=== PATIENT | female | born 1950 | race Caucasian/White ===

== ENCOUNTER 2016-12-27 21:30 | Observation (INO) | payer MEDICARE ==
[~2016-12-27] VITALS: Ht 157.5 cm; Wt 58.5 kg
[~2016-12-27 21:30] MED LIST: PRE20 PO; TRAM50TA2 PO; excedrin PO
[2016-12-27 22:48] VITALS: BP 124/76; PULSE 86; RESP 18; O2SAT 97
[2016-12-27] MEDS ORDERED: Excedrin PO (23:06)
[2016-12-27] MEDS ORDERED: LEVO500T16 PO (23:23)
[2016-12-27] MEDS ORDERED: METR500T PO (23:23)
[2016-12-27] MEDS ORDERED: Atropine 1 mg/10 mL (Code) Syringe IVPUSH PRN (23:50)
[2016-12-27] MEDS ORDERED: Senna-Docusate 8.6-50 mg Tablet PO PRN (23:50)
[2016-12-27] MEDS ORDERED: Ondansetron 2 mg/mL 2 mL Inj IVPUSH PRN (23:50)
[2016-12-27] MEDS ORDERED: Polyethylene Glycol (PEG) 17 Gm Powder PO PRN (23:50)
[2016-12-27] MEDS ORDERED: Alum-Mag Hydrox-Simeth 30 mL Suspension PO PRN (23:50)
[2016-12-28] MEDS: Sodium Chloride LOK Flush 10 mL Syringe IVFLUSH SCH ×2 (00:30→07:45)
[2016-12-28] MEDS: 0.9% Sodium Chloride 1,000 ML IV SCH ×3 (00:33→14:21)
[2016-12-28 00:49] VITALS: BP 118/78; PULSE 78; RESP 18; O2SAT 96
--- NOTE | 2016-12-28 00:58 | PCM.HPMED ---
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 Patient presented to the [facility] ED via private vehicle complaining of acute onset shortness of breath and chest pressure described as "I have now been sitting on my chest" rated 7-8 out of 10 and unremitting onset 4 PM on 12/27/2016. Of note patient is 5 weeks status post immunotherapy. Currently patient describes no pain during the interview. She states the Dilaudid helped a great deal. She reports that she has never experienced this sensation prior to today. Patient reports that the chest pressure (points to sternum) began while at rest without strenuous activity, and was associated with shortness of breath. Patient is currently a smoker with [id number] history currently smoking 3 cigarettes per day. In the [facility] ED patient received the following: Patient had a negative troponin at 0.05, received Aspirin 325 mg once, nitroglycerin paste 1 inch, IV normal saline 1000 mL per hour over 30 minutes, Dilaudid 0.5 mg once, Lovenox sub-cutaneous 60 mg once, Protonix 40 mg IV once His vital signs in the ED were blood pressure 110/80, heart rate 87, oxygen saturation 97% on room air, pain scale 5 out of 10 prior to nitroglycerin. After nitroglycerin patient's pain was rated as 3 out of 10 and after Dilaudid patient's pain was rated as 0 out of 10. Hemogram: Within normal limits Chemistry panel: Alkaline phosphatase 125, albumin 2.9, otherwise within normal limits Troponin I less than 0.05 D-dimer elevated at 1.[address] angiogram thorax [facility] 12/27/2016 Impression: No evidence of pulmonary embolism, increasing mediastinal adenopathy consistent with neoplastic progression, findings discussed with Dr. Mujica X-ray chest 2 view, 12/27/2016 Impression: mild bibasilar parenchymal scarring, there is a persistent 4.0; right paratracheal enlarged lymph node. Otherwise negative chest x-ray EKG done at [facility] 12/27/2015 showed normal sinus rhythm, left axis deviation, pulmonary disease pattern, inferior posterior infarct age undetermined, abnormal ECG. Upon review of the EKG by this physician appears that there is T-wave inversion in lead V1 and V2 as well as aVR. There appears to be peaked T-wave in V2. No acute ST or T-wave changes. No changes versus previous EKG on 12/06/2015. Review of Systems: A comprehensive review of systems was conducted and was negative except as mentioned in history of present illness. Allergies Coded Allergies: nivolumab (Verified Adverse Reaction, Severe, 12/27/16) Possibly the cause of increased weakness, uncoordination, tingling and pain. prednisone (Verified Adverse Reaction, Severe, 12/27/16) Possible taper off prednisone caused increased weakness, uncoordination, tingling and pain. Uncoded Allergies: narcotics (Adverse Reaction, Unknown, Constipation, 12/27/16) Home Medications Levothyroxine 500 mg PO daily 2 days remaining Metronidazole 500 mg PO every 8 hours 2 days remaining Excedrin 1000 mg twice a day PMH Small cell lung cancer status post lobectomy August 2014 Metastatic lung cancer to the leg status post condylocephalic nailing of the right femur, status post radiation Diverticulosis/diverticulitis, diagnosed 12/23/2016 currently on antibiotics UTI diagnosed 12/23/2016 currently on antibiotics Degenerative disc disease Scoliosis Surgical History Lung lobectomy August 2014 Prognosis: Nailing of the right femur December 2014 secondary to leg metastases Family History Father history of colon cancer, prostate cancer, Alzheimer's, hypertension, at age 94 Social History Hx Alcohol Use: No Hx Substance Use: No Hx Tobacco Use: Yes (3 cigarettes per day, at most one half pack per day 40 years) Smoking Status: Current Every Day Smoker Living Arrangement: with Family (this with Ramy [phone]) Exam Vital Signs Vital Sign - Last Date Time Temp Pulse Resp B/P Pulse Ox O2 Delivery O2 Flow Rate FiO2 2/25/17 22:48 36.8 86 18 124/76 97 Room Air Exam General: alert, oriented 3 no acute distress, speaking in full sentences, pleasant, cheerful, sitting at the side of her bed, conversing HEENT: NC/AT, eyes, PERRLA, EOMI, neck, soft supple, no adenopathy, no JVD, no masses, no thyromegaly, throat mucous membranes pink and moist, no erythema, no exudates, no tonsillar swelling. Lungs: CTAB all dunne, no wheezes, no rhonchi, no crackles, no adventitious lung sounds, no use of accessory muscles of respiration, good air movement, good respiratory effort. Heart: Regular rate and rhythm, no murmur, S1-S2 present, no rub, no click, no distant heart sounds, Abdomen: Soft, nontender, nondistended, bowel sounds active, no rebound, no guarding, Genitourinary: No CVA tenderness, no suprapubic tenderness, no Chapman catheter, Extremities: pulses equal and symmetric upper/lower extremity including radial and dorsalis pedis, no edema Neurologic: Grossly neurologically intact, taking in full sentences, no focal neurological signs. Skin: Slightly yellow colored skin, no icterus, patient is a smoker, skin is warm and dry Psychiatric: Mood is cheerful and mood and affect are congruent and appropriate. Lab and Diagnostics X-Rays, CTs and MRIs CT angiogram thorax [facility] 12/27/2016 Indications chest pain, elevated d-dimer 1.51 Findings mild bilateral upper lower lung parenchymal scarring, lungs are otherwise clear. There is a increase in size of 3.4 cm Jennifer paratracheal lymph node previously was 2.8 cm and a 2.5 cm right anterior mediastinal lymph node now measuring 2.5 cm previously 2.2 cm No evidence of pulmonary embolism Impression: No evidence of pulmonary embolism, increasing mediastinal adenopathy consistent with neoplastic progression, findings discussed with Dr. Mujica X-ray chest 2 view, 12/27/2016 Findings: status post right upper lipectomy was mild parenchymal scarring at the lung bases, lungs otherwise clear. There is a 4.0 cm right paratracheal enlarged lymph node mediastinum is otherwise normal. Heart is normal in size, thorax is unchanged. Reason chest pain history of lung carcinoma and adenopathy Impression: mild bibasilar parenchymal scarring, there is a persistent 4.0; right paratracheal enlarged lymph node. Otherwise negative chest x-ray 12-lead ECG EKG done at [facility] 12/27/2015 showed normal sinus rhythm, left axis deviation, pulmonary disease pattern, inferior posterior infarct age undetermined, abnormal ECG. Upon review of the EKG by this physician appears that there is T-wave inversion in lead V1 and V2 as well as aVR. There appears to be peaked T-wave in V2. No acute ST or T-wave changes. No changes versus previous EKG on 12/06/2015. Assessment & Plan This is a pleasant 66-year-old female with past neural L history of metastatic small cell lung cancer status post right lobectomy, with recent diagnosis of diverticulitis and UTI currently on oral antibiotic medication, who presented to [facility] ED complaining of acute onset chest pressure and shortness of breath while at rest. Pain resolved with nitroglycerin and Dilaudid. Initial workup including EKG and troponins were negative for STEMI/ and STEMI patient was answered to [facility] for further workup and observation. # Acute chest pressure and shortness of breath while at rest, present on admission, active - Patient admitted for observation for further workup into rule out Acute Coronary Syndrome/[place], - EKG: normal sinus rhythm, left axis deviation, pulmonary disease pattern, inferior posterior infarct age undetermined, abnormal ECG. Upon review of the EKG by this physician appears that there is T-wave inversion in lead V1 and V2 as well as aVR. There appears to be peaked T-wave in V2. No acute ST or T- wave changes. No changes versus previous EKG on 12/06/2015. - Troponin I was less than 0.05 at [facility] - At [facility] had elevated d-dimer 1.51 - CT angiogram thorax negative for pulmonary embolism - Chest x-ray showed no acute cardio pulmonary changes, however persistent 4.0 cm right paratracheal enlarged lymph node - Patient received enoxaparin 60 mg subcutaneous once at [facility], will continue enoxaparin every 12 hours while in-house. - Cardiac echo ordered and pending - Stress testing in the a.m. to rule out ischemia - O2 Sats keep > 94% - IV fluids will saline only as needed, - We will hold off on starting Metoprolol given blood pressure 124 systolic - We will start Atorvastatin - Morphine for pain control - Nitro SL, Nitro Pomeroy, Nitro Paste (PRN) - Continue daily Aspirin 325mg - We will hold off on starting Plavix - Patient received enoxaparin 60 mg subcutaneous once at [facility], will continue enoxaparin every 12 hours while in-house. - Continuous Cardiac Monitoring/BP monitoring - Consider Cardio Consult (in AM) - A.M Labs ordered and pending (Lipid Panel, CBC, CMP) - Heart Healthy Diet # Diverticulosis with acute diverticulitis, present on admission, active - Patient currently in no abdominal pain, denying nausea vomiting fevers. - Exam significant for no abdominal tenderness, normal bowel sounds, no rebound or guarding. - As seen on CT abdomen and pelvis dated 12/23/2016 at [facility] showed acute diverticulitis, patient was discharged on oral medication levothyroxine 500 mg daily, and metronidazole 500 mg every 8 hours. - Continue medication levothyroxine 500 mg by mouth daily for remaining 2 days. Patient to take own home medication - Continue medication metronidazole 500 mg every 8 hours by mouth for remaining 2 days. Patient to take own home medication Disposition: Admitted to in patient service with expected length of stay greater than 2 days, secondary to severity of presenting symptoms, treatment plan, complexity of clinical work up, and risk of adverse events. CODE STATUS: Full code PCP: Dr. De Paz, Oncology: Dr. Crisostomo DVT PE prophylaxis: She currently on subcutaneous enoxaparin every 12 hours. Patient received first dose 60 mg of enoxaparin subcutaneous at [facility]. Contact: Ramy, , Pain Evaluation: Adequate Pain Control Resuscitation Status: CPR: Attempt Resuscitation Attending Statement The patient was seen and examined together with Dr. Edwards on 12/27 and I agree with the history, exam and plan as outlined in the note above. Keenan Edwards DO Dec 28, 2016 00:58 Harry Givens MD Dec 28, 2016 01:27
--- NOTE | 2016-12-28 01:11 | NUR ---
ADMIT NOTE Pt arrived to [facility] 3001 approx 2245 via ambulance from [facility]. Pt alert & oriented, able to ambulate from stretcher to bed. Pt denies any pain or chest discomfort at this time. Pt placed on remote telemetry. VS obtained. Pt on RA. Pt arrived w/ saline lock, patent, IVF administered. Continue to monitor. Call light in reach. Intentional rounding.
--- NOTE | 2016-12-28 04:08 | NUR ---
Cardiac Stress Test Prep Pts last meal/food was 12/27/16 @ 1400. Last caffeine 12/27/16 "was around 7am, I had half cup of coffee, and took 2 excedrin about 4pm." NPO since MN. 2nd troponin ordered to be drawn w/ 12/28/16 am labs. Nitro paste removed 12/28/16 @ 5411.
[2016-12-28 04:52] VITALS: BP 124/79; PULSE 82; RESP 18; O2SAT 96
[2016-12-28 07:05] VITALS: PULSE 85
[2016-12-28 07:05] LABS: BASOPHILS % (AUTO) 0.9 % (0-3); EOSINOPHILS % (AUTO) 6.6 % (0-5); MONOCYTES % (AUTO) 12.9 % (4-12); Mean Corpuscular Hemoglobin 27.2 pg (27.0-35.0); Mean Corpuscular Volume 85.4 fL (81-100); NEUTROPHILS % (AUTO) 55.3 % (40-74); Platelet Count 341 bil/L (150-400)
[2016-12-28 07:55] LABS: TROPONIN T < 0.010 ug/L (0.0-0.011)
[2016-12-28 08:06] LABS: INR 1.09 ratio
[2016-12-28] MEDS ORDERED: levoFLOXacin 500 mg Tablet PO SCH (08:30)
[2016-12-28 09:06] VITALS: PULSE 75
--- NOTE | 2016-12-28 10:33 | NUR ---
pt off floor for stress test
[2016-12-28 11:30] VITALS: BP 124/76; PULSE 101; RESP 18; O2SAT 96
--- NOTE | 2016-12-28 12:11 | NUR ---
SYLVESTER explained and signed. Copy given to pt.
--- NOTE | 2016-12-28 12:29 | DRSVH ---
[facility] [address] [place] [address] Echocardiogram Report Name: OSVALDO MOSQUEDA HStudy Date: Height: 62 in Hospital Exam Location: [facility] Weight: 129 lb Gender: Female BSA: 1.6 m2 : 1950 Age: 66 yrs BP: 124/79 mmHg Reason For Study: Chest pain Ordering Physician: [facility] Performed By: Rl Miles Referring Physician: NATHAN CARRANZA Interpretation Summary Left ventricular systolic function is normal without focal wall motion abnormalities with the ejection fraction estimated to be 60-65%. There is borderline concentric left ventricular hypertrophy with assessment of diastolic parameters suggesting a relaxation abnormality of the left ventricle, consistent with normal filling pressures. The right ventricle is normal in size and function. The right ventricular systolic pressure is estimated at 29 mmHg assuming a right atrial pressure of 3 mm Hg. The atria are not well visualized but grossly appear normal in size. There is no significant valvular heart disease. Procedure: A two-dimensional transthoracic echocardiogram with color flow and Doppler was performed. The study quality was technically difficult. There is no prior echocardiogram noted for this patient. The patient was in normal sinus rhythm during the exam. Left Ventricle: The left ventricle is normal in size. There is borderline concentric left ventricular hypertrophy. Left ventricular systolic function is normal without focal wall motion abnormalities. The ejection fraction is estimated to be 60-65%. Assessment of diastolic parameters indicates a relaxation abnormality of the left ventricle, consistent with normal filling pressures. Right Ventricle: The right ventricle is normal in size and function. Atria: The left atrium is not well visualized. The left atrium grossly appears normal in size. The right atrium grossly appears normal in size. The interatrial septum is intact with no evidence for an atrial septal defect. Mitral Valve: The mitral valve is grossly normal. There is no mitral regurgitation noted. Aortic Valve: The aortic valve is not well visualized. The aortic valve is grossly normal. The aortic valve opens well. There is no aortic valve stenosis. No aortic regurgitation is present. Tricuspid Valve: The tricuspid valve is normal. There is a trace or physiologic amount of tricuspid regurgitation. The right ventricular systolic pressure is estimated at 29 mmHg assuming a right atrial pressure of 3 mm Hg. Pulmonic Valve: The pulmonic valve is not well visualized. There is no significant valvular heart disease. Great Vessels: The aortic root is normal size. The ascending aorta could not be visualized. The pulmonary is not well visualized. The IVC is of normal diameter and collapses greater than 50% with a sniff. This suggests a low right atrial pressure of 3 mm Hg. Pericardium/ Pleura There is no pericardial effusion. There is no pleural effusion. MMode/2D Measurements & Calculations LVIDd: 4.3 cm LA A2 area LVOT diam: 2.0 cm LV quinteros. diameter/BSA LVIDs: 2.8 cm AoV Opening (cm/m^2): 2.7 FS: 34.1 % IVSd: 0.98 cm LA length Ao root diam LVPWd: 0.96 cm (vol): 5.5 cm IVC diam Ao Arch Diam (Prox : 2.0 cm Trans): 2.2 cm LV sys. diameter/BSA (cm/m^2): 1.8 Doppler Measurements & Calculations Ao V2 max MV E max ga MV E/A: 0.86 TR max ga : 135.0 cm/sec : 58.1 cm/sec Med Peak E' Ga : 256.5 cm/sec Ao max PG MV A max ga TR max P.3 mmHg : 7.3 mmHg : 67.8 cm/sec E/E' med: 12.6 Ao mean PG Lat Peak E' Ga LVOT Max Ga E/E' lat: 8.0 : 95.7 cm/sec E/e' average KARMEN(I,D): 2.5 cm Pulm A Revs Dur sev ratio MV dec time Ao V2 mean LV V1 max PG KARMEN indexed to BSA : 0.21 sec : 89.8 cm/sec (cm^2/m^2): 1.6 Ao V2 VTI LV V1 VTI: 20.0 cm KARMEN(V,D): 2.2 cm2 Reading Physician:12:28 PM
--- NOTE | 2016-12-28 12:40 | NUR ---
Social Work-initial assessment: Data:See initial assessment. Pt is a 66 y/o female who was admitted on 12/27/16 for chest pain per H&P. Pt's insurance is [facility] and PCP is Baldo Farah MD. EMR Reviewed. SW met with pt at bedside to discuss discharge planning, SW role explained. Pt is alert and oriented x3. Pt resides at home with her in [place] where she remains independent with ADls. Pt does not use any DME and drives. Pt has no HH or SNF history. Pt has no [facility]ci care insurance or VA benefits. SW discussed DPOA/ advanced directive, pt declining resources. Per RN notes, pt has been up independent in her room. Pt feels like she has enough care at home. PT evaluation is pending. Pt's to provide transport home. SW provided phone number and plan on white board in room. SW will continue to follow. Assessment:Pt who is independent at baseline. Plan:Pt to discharge home when medically stable via POV. PT evaluation is pending.SW will continue to follow. NIKKI Huynh Addendum: 12/28/16 at 1245 by PAMELA POWELL Amended: Links added.
[2016-12-28 14:53] VITALS: BP 126/78; PULSE 89; RESP 18; O2SAT 96
--- NOTE | 2016-12-28 15:33 | NUR ---
eyes not focusing pt states that last time she was given Dilaudid IV she was able to focus her vision and didn't have any pain. After 1mg oral she didn't get any relief and couldn't focus eyes. paged doc to advise.
--- NOTE | 2016-12-28 15:48 | DRSVH ---
PROCEDURE PERFORMED: PHARMACOLOGIC VASODILATOR STRESS ONLY MYOCARDIAL PERFUSION IMAGING WITH GATING TO ASSESS EJECTION FRACTION AND REGIONAL WALL MOTION. RADIOPHARMACEUTICAL: 25.2 mCi of technetium-99 tetrofosmin INDICATIONS: The patient is a 66-year-old female with a remote history of partial pneumonectomy for lung cancer with known metastases, admitted with acute dyspnea and chest discomfort with normal tropo nins and ECG. COMPARISON: None. PHARMACOLOGIC VASODILATOR STRESS: 0.4 mg of Lexiscan was infused per protocol. With this, she had a normal hemodynamic response and developed dyspnea followed by mid chest pressure and nausea. Oxygen saturation stayed normal at 96%. Her resting ECG showed low voltage QRS but is otherwise normal and there are no ischemic changes with stress. There were no arrhythmias. She was given 125 mg of melton ophylline with improvement of her chest discomfort down to a level that she said was a chronic, persi stent level. There were no arrhythmias. FINDINGS: 1. Raw Data: There is fairly good myocardial tracer uptake without significant breast shadows or ob vious increased long uptake. 2. Quantitative Gated SPECT: Post-stress ejection fraction is estimated at 91%, likely overestimate d due to the patient's small left ventricular volumes with an end diastolic volume of only 30 mL. Th ere are no regional wall motion abnormalities identified. 3. Myocardial Perfusion Imaging: Post-stress supine images show a normal perfusion pattern without any significant perfusion defects, supported by normal perfusion imaging in the prone position. On t he basis of these images, it was felt that resting images were not needed. IMPRESSION: 1. Normal myocardial perfusion study. 2. No evidence for myocardial ischemia or previous myocardial infarction. 3. High-normal left ventricular systolic function with small left ventricular volumes. 4. Atypical chest discomfort with vasodilator pharmacologic stress but no ECG evidence of ischemia. Dictated by: Jama Garza M.D. on 12/28/2016 at 12:55 Transcribed by: JEAN PAUL on 12/28/2016 at 18:47 Approved by: Jama Garza M.D. on 12/29/2016 at 10:43
--- NOTE | 2016-12-28 15:49 | PCM.PNMED ---
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 ED complaining of acute onset chest pressure and shortness of breath while at rest and nitial workup was negative for STEMI/NSTEMI therefore patient was transferred to [facility] for further workup and observation. Due to #2. Overnight: There were no acute events. Telemetry overnight was sinus rhythm, heart rate 80 to 100, occasional PVC's. The patient is resting in bed comfortably and in no acute distress while having her echocardiogram performed. She denies headache, vision changes, shortness of breath, chest pain, abdominal pain, nausea, vomiting, fever, chills, dysuria , diarrhea or constipation. She does endorse myalgia and eye socket pain which is chronic. She reports she is voiding and eliminating without difficulty. She is up ambulating with assistance and endorses weakness and unsteadiness with her gait. . Exam Vital Signs Vital Sign - Last Date Time Temp Pulse Resp B/P Pulse Ox O2 Delivery O2 Flow Rate FiO2 12/28/16 11:30 36.6 101 18 124/76 96 Room Air Intake and Output 12/27/16 12/27/16 12/28/16 Cumulative From/Thru 15:00 23:00 07:00 12/27/16 22:49 - 12/28/16 06:18 Intake Total 608 ml 608 ml Output Total 850 ml 850 ml Balance -242 ml -242 ml Intake Oral 200 ml 200 ml IV Total 408 ml 408 ml Output Urine Total 850 ml 850 ml Exam General: Middle-aged female lying in bed and in no acute distress, well- developed, well-nourished, appropriately interactive HEENT: Normocephalic, atraumatic. External ears without defect. Pupils equal, round, and reactive to light. Anicteric sclerae, moist conjunctivae, and no lid lag. Oropharynx free of erythema and cobble stoning with moist mucosa. Neck: Supple with full range of motion. No jugular venous distension. No bruits. No lymphadenopathy or thyromegaly. Cardiovascular: Regular rate and rhythm with no murmurs, rubs, or gallops appreciated Pulmonary: Clear to auscultation bilaterally with no crackles, wheezes, or rhonchi. Normal respiratory effort with no use of accessory muscles. Abdomen: Soft, nontender, nondistended, bowel sounds present. No hepatosplenomegaly or masses appreciated. Extremities: No clubbing, cyanosis, or edema. Skin: Normal temperature, turgor, and texture; no rash, ulcers, or subcutaneous nodules appreciated. Neurological: Cranial nerves grossly intact. Normal muscle strength, tone, and bulk. Reflexes, coordination, and sensory function within normal limits. No known gait impairment. Psychiatric: Normal mood and affect. Alert and oriented to person, place, and time. . IVs and Medications Medications Reviewed: Medications were reviewed in detail Lab and Diagnostics Item Value Date Time Triglycerides Level 138 mg/dL 12/28/16 0640 Cholesterol Level 143 mg/dL 12/28/16 06 LDL Cholesterol, Calculated 82.400 mg/dL 12/28/16639 VLDL Cholesterol 27.600 mg/dL 12/28/16639 HDL Cholesterol 33 mg/dL 12/28/16 06 Cholesterol/HDL Ratio 4.33 12/28/16 06 Item Value Date Time Troponin T 0.010 ug/L 12/28/16 0020 Troponin T < 0.010 ug/L 12/28/16 06 Item Value Date Time Calcium Level 8.2 mg/dL L 12/28/16 06 Result Diagram: 12/28/1663912/28/16639 X-Rays, CTs and MRIs CT angiogram thorax [facility] 12/27/2016 Indications chest pain, elevated d-dimer 1.51 Findings mild bilateral upper lower lung parenchymal scarring, lungs are otherwise clear. There is a increase in size of 3.4 cm Jennifer paratracheal lymph node previously was 2.8 cm and a 2.5 cm right anterior mediastinal lymph node now measuring 2.5 cm previously 2.2 cm No evidence of pulmonary embolism Impression: No evidence of pulmonary embolism, increasing mediastinal adenopathy consistent with neoplastic progression, findings discussed with Dr. Mujica X-ray chest 2 view, 12/27/2016 Findings: status post right upper lipectomy was mild parenchymal scarring at the lung bases, lungs otherwise clear. There is a 4.0 cm right paratracheal enlarged lymph node mediastinum is otherwise normal. Heart is normal in size, thorax is unchanged. Reason chest pain history of lung carcinoma and adenopathy Impression: mild bibasilar parenchymal scarring, there is a persistent 4.0; right paratracheal enlarged lymph node. Otherwise negative chest x-ray 12-lead ECG EKG done at [facility] 12/27/2015 showed normal sinus rhythm, left axis deviation, pulmonary disease pattern, inferior posterior infarct age undetermined, abnormal ECG. Upon review of the EKG by this physician appears that there is T-wave inversion in lead V1 and V2 as well as aVR. There appears to be peaked T-wave in V2. No acute ST or T-wave changes. No changes versus previous EKG on 12/06/2015. 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 ED complaining of acute onset chest pressure and shortness of breath while at rest and nitial workup was negative for STEMI/NSTEMI therefore patient was transferred to [facility] for further workup and observation. 1. Unstable angina, present on admission. Active. - Patient admitted for observation for further workup to rule out Acute Coronary Syndrome/RI. - EKG: normal sinus rhythm, left axis deviation, pulmonary disease pattern, inferior posterior infarct age undetermined, abnormal ECG. Upon review of the EKG by this physician appears that there is T-wave inversion in lead V1 and V2 as well as aVR. There appears to be peaked T-wave in V2. No acute ST or T- wave changes. No changes versus previous EKG on 12/06/2015. - Troponin I was less than 0.[address] [facility]. Ordered serial troponins 3. - At [facility] had elevated d-dimer 1.51. - CTA chest negative for pulmonary embolism. - Chest x-ray showed no acute cardio pulmonary changes, however, persistent 4.0 cm right paratracheal enlarged lymph node will need to be followed as an outpatient. - Patient received enoxaparin 60 mg subcutaneous once at [facility], will continue enoxaparin every 12 hours. - Start aspirin 81 mg daily, atorvastatin 40 mg daily at bedtime, and low-dose beta lorenzo metoprolol tartrate 12.5 mg daily. - Nitroglycerin and morphine as needed for chest pain. - Patient received enoxaparin 60 mg subcutaneous once at [facility], will continue enoxaparin every 12 hours while in-house. - Monitor vital signs and telemetry closely. - Ordered echocardiogram, pending. - Ordered nuclear medicine stress test, pending. 2. Acute diverticulitis, present on admission. Treated. - Patient currently has no abdominal pain and denies nausea, vomiting, or fevers. - CT abdomen and pelvis dated 12/23/[address] [facility] showed acute diverticulitis, as above. - Continue levofloxacin and metronidazole for remaining 2 days of diverticulitis treatment. Patient to take own home medication. Chronic problems: Tobacco use disorder, chronic. - Nicotine patch available as needed for symptoms of nicotine withdrawal. - Counseled patient on importance of smoking cessation. PRN antiemetics: Zofran and Maalox. PRN bowel regimen: Senna and MiraLAX. PRN analgesics: Tylenol. Disposition: Patient is admitted under observation status with expected length of stay less than 2 midnights due to severity of presenting symptoms, risk of adverse event, and complexity of treatment plan. . VTE Mechanical Devices: Venous Foot Pump Resuscitation Status: CPR: Attempt Resuscitation Attending Statement The patient was seen and examined together with Dr. Koenig on 12/28/2016 and I agree with the history, exam and plan as outlined in the note above. copies to: Luis Cordero MD, [place] M DO Dec 28, 2016 13:53 Dilan Ruff MD Dec 29, 2016 09:53
--- NOTE | 2016-12-28 16:16 | NUR ---
[facility] pt is choosing to leave [facility]. states that she can lay in bed at home and use her own pain medications. Addendum: 12/28/16 at 1626 by YOBANY OSORIO RN pt refuses W/C ride or escort to car. agreed to hold onto pt as the walk to private car to return home.
--- NOTE | 2016-12-28 16:31 | NUR ---
Social Work-discharge: SW updated by [facility] that pt has left AMA. No other SW needs identified. Beti Cyr MSW
--- NOTE | 2016-12-29 09:56 | PCM.DC.MED ---
Discharge Summary Date of Service Dec 29, 2016 Dates of Hospitalization Date of Hospital Admission Dec 27, 2016 at 22:38 Date of Discharge: Dec 28, 2016 Providers: Admitting Physician: Harry Givens MD Primary Care Physician: Baldo Farah MD Attending Physician: Harry Givens MD Diagnosis at Time of Discharge Diagnosis at Time of Discharge 1. Chest Pain 2. Chronic Pain Syndrome 3. Diverticulitis Procedures XRay, CTs & MRIs CT angiogram thorax [facility] 12/27/2016 Indications chest pain, elevated d-dimer 1.51 Findings mild bilateral upper lower lung parenchymal scarring, lungs are otherwise clear. There is a increase in size of 3.4 cm Jennifer paratracheal lymph node previously was 2.8 cm and a 2.5 cm right anterior mediastinal lymph node now measuring 2.5 cm previously 2.2 cm No evidence of pulmonary embolism Impression: No evidence of pulmonary embolism, increasing mediastinal adenopathy consistent with neoplastic progression, findings discussed with Dr. Mujica X-ray chest 2 view, 12/27/2016 Findings: status post right upper lipectomy was mild parenchymal scarring at the lung bases, lungs otherwise clear. There is a 4.0 cm right paratracheal enlarged lymph node mediastinum is otherwise normal. Heart is normal in size, thorax is unchanged. Reason chest pain history of lung carcinoma and adenopathy Impression: mild bibasilar parenchymal scarring, there is a persistent 4.0; right paratracheal enlarged lymph node. Otherwise negative chest x-ray ECG 12 Lead EKG done at [facility] 12/27/2015 showed normal sinus rhythm, left axis deviation, pulmonary disease pattern, inferior posterior infarct age undetermined, abnormal ECG. Upon review of the EKG by this physician appears that there is T-wave inversion in lead V1 and V2 as well as aVR. There appears to be peaked T-wave in V2. No acute ST or T-wave changes. No changes versus previous EKG on 12/06/2015. Brief History Faviola is a pleasant 66-year-old female with past medical history of right lung small cell lung cancer status post right lobectomy August 2014, history of metastases to the right femur status post radiation and surgery, recent diagnosis of UTI and diverticulosis with diverticulitis on CT on 12/23/2016, on oral antibiotics thyroxine 500 mg daily, metronidazole 500 mg every 8 hours (2 days remaining therapy). Patient presented to the [facility] ED via private vehicle complaining of acute onset shortness of breath and chest pressure described as "I have now been sitting on my chest" rated 7-8 out of 10 and unremitting onset 4 PM on 12/27/2016. Of note patient is 5 weeks status post immunotherapy. Currently patient describes no pain during the interview. She states the Dilaudid helped a great deal. She reports that she has never experienced this sensation prior to today. Patient reports that the chest pressure (points to sternum) began while at rest without strenuous activity, and was associated with shortness of breath. Patient is currently a smoker with [id number] history currently smoking 3 cigarettes per day. In the [facility] ED patient received the following: Patient had a negative troponin at 0.05, received Aspirin 325 mg once, nitroglycerin paste 1 inch, IV normal saline 1000 mL per hour over 30 minutes, Dilaudid 0.5 mg once, Lovenox sub-cutaneous 60 mg once, Protonix 40 mg IV once His vital signs in the ED were blood pressure 110/80, heart rate 87, oxygen saturation 97% on room air, pain scale 5 out of 10 prior to nitroglycerin. After nitroglycerin patient's pain was rated as 3 out of 10 and after Dilaudid patient's pain was rated as 0 out of 10. Hemogram: Within normal limits Chemistry panel: Alkaline phosphatase 125, albumin 2.9, otherwise within normal limits Troponin I less than 0.05 D-dimer elevated at 1.[address] angiogram thorax [facility] 12/27/2016 Impression: No evidence of pulmonary embolism, increasing mediastinal adenopathy consistent with neoplastic progression, findings discussed with Dr. Mujica X-ray chest 2 view, 12/27/2016 Impression: mild bibasilar parenchymal scarring, there is a persistent 4.0; right paratracheal enlarged lymph node. Otherwise negative chest x-ray EKG done at [facility] 12/27/2015 showed normal sinus rhythm, left axis deviation, pulmonary disease pattern, inferior posterior infarct age undetermined, abnormal ECG. Upon review of the EKG by this physician appears that there is T-wave inversion in lead V1 and V2 as well as aVR. There appears to be peaked T-wave in V2. No acute ST or T-wave changes. No changes versus previous EKG on 12/06/2015. 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 1. Unstable angina, present on admission. Active. - Patient admitted for observation for further workup to rule out Acute Coronary Syndrome/CA. - EKG: normal sinus rhythm, left axis deviation, pulmonary disease pattern, inferior posterior infarct age undetermined, abnormal ECG. Upon review of the EKG by this physician appears that there is T-wave inversion in lead V1 and V2 as well as aVR. There appears to be peaked T-wave in V2. No acute ST or T- wave changes. No changes versus previous EKG on 12/06/2015. - Troponin I was less than 0.05 at [facility]. Serial troponins were negative - At [facility] had elevated d-dimer 1.51. - CTA chest negative for pulmonary embolism. - Chest x-ray showed no acute cardio pulmonary changes, however, persistent 4.0 cm right paratracheal enlarged lymph node will need to be followed as an outpatient. - Patient received enoxaparin 60 mg subcutaneous once at [place], will continue enoxaparin every 12 hours. - Started pt on aspirin 81 mg daily, atorvastatin 40 mg daily at bedtime, and low-dose beta lorenzo metoprolol tartrate 12.5 mg daily. - Nitroglycerin and morphine as needed for chest pain. - Patient left hospital AMA after her stress test came back negative before ECHO results were available 2. Acute diverticulitis, present on admission. Treated. - Patient currently has no abdominal pain and denies nausea, vomiting, or fevers. - CT abdomen and pelvis dated 12/23/2016 at [facility] showed acute diverticulitis, as above. - Continue levofloxacin and metronidazole for remaining 2 days of diverticulitis treatment. Patient to take own home medication. Pt left hospital AMA on 12/28/2016 Exam Vital Signs (Last) Date Time Temp Pulse Resp B/P Pulse Ox O2 Delivery O2 Flow Rate FiO2 12/28/16 14:53 36.7 89 18 126/78 96 Room Air Test 12/28/16 00:20 12/28/16 06:40 12/28/16 07:46 12/28/16 15:40 White Blood Count 7.8th/mm3 (3.8-10.1) Red Blood Count 4.37mil/mm3 (3.90-5.20) Hemoglobin 11.9g/dL (12.0-15.6) Hematocrit 37.3% (35.0-46.0) Mean Corpuscular Volume 85.4fL (81-100) Mean Corpuscular Hemoglobin 27.2pg (27.0-35.0) Mean Corpuscular Hemoglobin Concent 31.9% (32.0-37.0) Red Cell Distribution Width 17.4% (12.3-15.4) Platelet Count 341bil/L (150-400) Neutrophils (%) (Auto) 55.3% (40-74) Lymphocytes (%) (Auto) 23.5% (14-46) Monocytes (%) (Auto) 12.9% (4-12) Eosinophils (%) (Auto) 6.6% (0-5) Basophils (%) (Auto) 0.9% (0-3) Sodium Level 143mEq/L (134-144) Potassium Level 3.7mEq/L (3.5-5.2) Chloride Level 106mEq/L (97-108) Carbon Dioxide Level 19mmol/L (18-29) Blood Urea Nitrogen 4mg/dL (8-27) Creatinine 0.56mg/dL (0.57-1.00) Estimat Glomerular Filtration Rate 154mL/min (>59) Glucose Level 103mg/dL (60-99) Calcium Level 8.2mg/dL (8.5-10.1) Triglycerides Level 138mg/dL (0-149) Cholesterol Level 143mg/dL (100-199) LDL Cholesterol, Calculated 82.400mg/dL (0-99) VLDL Cholesterol 27.600mg/dL HDL Cholesterol 33mg/dL (>39) Cholesterol/HDL Ratio 4.33 (0.0-4.4) Prothrombin Time 11.7sec (8.1-12.5) Prothromb Time International Ratio 1.09ratio Troponin T < 0.010ug/L (0.0-0.011) Discharge Medications Discharge Medications ([Excedrin]) 1,000 MG PO In AM, then HS prn (Reported) Levofloxacin (Levaquin) 500 Mg Tablet 500 MG PO DAILY (Reported) Metronidazole (Flagyl) 500 Mg Tablet 500 MG PO Q8H (Reported) Followup Plan Disposition: Pt left hospital AMA on 12/28/2016 Dilan Ruff MD Dec 29, 2016 09:56
[2016-12-31] MEDS ORDERED: TRAM50TA2 PO ×2 (10:04)
[2017-02-04] MEDS ORDERED: PYRI60TA2 PO (14:24)
[2017-02-04] MEDS ORDERED: AMIT75TA2 PO (14:24)
== END 2016-12-28 16:26 | disposition left against medical advice (07) ==
LOC: MPC 22:38
PROVIDERS: ADMIT Hospitalist; ATTEND Hospitalist
DX: R07.9 Chest pain, unspecified (principal); G89.4 Chronic pain syndrome; K57.32 Diverticulitis of large intestine without perforation or abscess without bleeding; N39.0 Urinary tract infection, site not specified; Z85.118 Personal history of other malignant neoplasm of bronchus and lung; F17.210 Nicotine dependence, cigarettes, uncomplicated
CPT/HCPCS: 36415; 78451; 80048; 80061; 83036; 84484; 85025; 85610; 93017; A9502; C8929; G0378; G0379; J1650; J7030